=== PATIENT | female | born 1940 | race Caucasian/White ===

== ENCOUNTER → 2016-12-10 | Outpatient (CLI) | payer MEDICARE, OTHER ==
[~2016-12-10] MED LIST: ALPR0.5T10 PO; AMLO10TA2 PO; ASPI-515 PO; ATOR40TA78 PO; DULO30CA2 PO; OMEP-110 PO
== END | disposition home or self-care (01) ==
LOC: RAD 13:28
PROVIDERS: ATTEND Family Medicine
DX: S06.0X0S Concussion without loss of consciousness, sequela (principal); R42 Dizziness and giddiness; X58.XXXS Exposure to other specified factors, sequela
CPT/HCPCS: 70450

== ENCOUNTER 2017-03-04 13:05 | Inpatient (IN) | payer MEDICARE, OTHER ==
[~2017-03-04] VITALS: Ht 162.6 cm; Wt 96.2 kg
[2017-03-04] MEDS ORDERED: PLEASE ENTER HEIGHT AND WEIGHT MC SCH (13:30)
[2017-03-04 14:05] VITALS: BP 142/82
[2017-03-04 14:07] LABS: HEMOGLOBIN 11.6 g/dL (11.7-16.4); WHITE BLOOD COUNT 7.2 x10^3/uL (3.4-10)
[2017-03-04 14:16] LABS: ASPARTATE AMINO TRANSFERASE 21 U/L (15-37); BLOOD UREA NITROGEN 15 mg/dL (7-18)
[2017-03-04] MEDS: ATORVASTATIN 40 MG TABLET PO SCH (19:55)
[2017-03-04 20:00] VITALS: BP 114/73
[2017-03-05 01:42] VITALS: BP 154/69
[2017-03-05 07:34] VITALS: BP 147/64
[2017-03-05] MEDS ORDERED: FENTANYL PF 100 MCG/2ML ONE (09:40)
[2017-03-05] MEDS ORDERED: MIDAZOLAM 1 MG/ML, 5ML ONE (09:40)
[2017-03-05] MEDS ORDERED: CEFAZOLIN PMX 1GM/50ML 50 ML ONE (09:40)
[2017-03-05] MEDS ORDERED: CEFAZOLIN 1,000 MG ONE (09:40)
[2017-03-05] MEDS ORDERED: LIDOCAINE 2%, 20ML ONE (09:40)
[2017-03-05] MEDS ORDERED: ZOLPIDEM 5MG TABLET PO PRN (11:00)
[2017-03-05] MEDS ORDERED: CEFAZOLIN PMX 1GM/50ML 50 ML IVPB ONE (11:00)
[2017-03-05 13:18] VITALS: BP 128/70
[2017-03-05] MEDS: CEFAZOLIN PMX 1GM/50ML 50 ML IVPB SCH (15:59)
[2017-03-05 20:21] VITALS: BP 158/85
[2017-03-05] MEDS: SODIUM CHLORIDE FLUSH 10ML SYR IVF SCH (21:03)
[2017-03-05] MEDS: ACETAMINOPHEN 325 MG TABLET PO PRN (21:03)
[2017-03-05] MEDS: DIPHENHYDRAMINE 25 MG CAPSULE PO PRN (21:03)
[2017-03-05] MEDS: ATORVASTATIN 40 MG TABLET PO SCH (21:03)
[2017-03-06] MEDS: CEFAZOLIN PMX 1GM/50ML 50 ML IVPB SCH (00:50)
[2017-03-06] MEDS: DIPHENHYDRAMINE 25 MG CAPSULE PO PRN (00:50)
[2017-03-06 02:02] VITALS: BP 137/83
[2017-03-06] MEDS: ACETAMINOPHEN 325 MG TABLET PO PRN (06:29)
[2017-03-06 06:42] VITALS: BP 165/83
[2017-03-06] MEDS: SODIUM CHLORIDE FLUSH 10ML SYR IVF SCH (07:47)
[2017-03-06] MEDS ORDERED: FAMOTIDINE 20 MG TABLET PO ONE (09:00)
[2017-03-06] MEDS ORDERED: AMLODIPINE 5 MG TABLET PO SCH (09:00)
[2017-03-06] MEDS ORDERED: ASPIRIN 81 MG TABLET EC PO SCH (09:00)
[2017-03-06] MEDS ORDERED: HYDROCORTISONE CRM 1%, 30GM TP PRN (09:00)
[2017-03-06] MEDS ORDERED: methylPREDNISolone SOD SUCC 125 MG/2 ML IVPush ONE (10:00)
== END 2017-03-06 10:59 | disposition home or self-care (01) | DRG 242 ==
LOC: 5SO 13:05
PROVIDERS: ADMIT Internal Medicine Cardiovascular Disease; ATTEND Internal Medicine Cardiovascular Disease
PROC: 0JH606Z Insertion of Pacemaker, Dual Chamber into Chest Subcutaneous Tissue and Fascia, Open Approach (ICD-10-PCS; principal; 2017-03-04)
PROC: 02H63JZ Insertion of Pacemaker Lead into Right Atrium, Percutaneous Approach (ICD-10-PCS; 2017-03-04)
PROC: 02HK3JZ Insertion of Pacemaker Lead into Right Ventricle, Percutaneous Approach (ICD-10-PCS; 2017-03-04)
DX: R00.1 Bradycardia, unspecified (principal); E43 Unspecified severe protein-calorie malnutrition; E11.22 Type 2 diabetes mellitus with diabetic chronic kidney disease; N18.9 Chronic kidney disease, unspecified; I12.9 Hypertensive chronic kidney disease with stage 1 through stage 4 chronic kidney disease, or unspecified chronic kidney disease; L29.9 Pruritus, unspecified; Z91.048 Other nonmedicinal substance allergy status
CPT/HCPCS: 33208; 36005; 36415; 71010; 80053; 85025; 85610; 93306; 99156; 99157; C1779; C1786; C1892; J0690; J2250; J3010; J3490; J2930; J7512; Q0163; Q9967

== ENCOUNTER → 2018-08-30 | Outpatient (CLI) | payer MEDICARE, OTHER ==
[~2018-08-30] MED LIST changes: +ACET-1600 PO; +ALBU8.5H8 INH; -AMLO10TA2 PO; +AMLO10TA8 PO; +ASPI-496 PO; +CHOL200040 PO; +DEXL60CA2 PO; +DULO20CA45 PO; +FLUO20CA19 PO; +FLUT1DIS INH; +GABA-826 PO; +LIDO113G3 TP; +LIDOCAINE PATCH; +LOPE2CAP94 PO; +LOTE5GEL EACHEYE; +NITR12SP2 TL; +PREG75CA PO; +SIMVASTATIN PO; +XANAX PO
[2018-08-30 12:56] LABS: ALANINE AMINOTRANSFERASE 15 U/L (12-78); ALBUMIN 3.2 g/dL (3.4-5.0); ANION GAP 8 mmol/L (5-15); CALCIUM 8.8 mg/dL (8.5-10.1); CHLORIDE 106 mmol/L (98-107); CREATININE 1.19 mg/dL (0.55-1.02)
[2018-08-30 12:58] LABS: ALKALINE PHOSPHATASE 99 U/L (45-117); BILIRUBIN,TOTAL 0.5 mg/dL (0.2-1.0); TOTAL PROTEIN 7.3 g/dL (6.4-8.2)
[2018-08-30 13:10] LABS: BASOPHILS # (AUTO) 0.07 x10^3/uL (0-0.1); BASOPHILS % (AUTO) 1 % (0-1); EOSINOPHILS # (AUTO) 0.22 x10^3/uL (0-0.4); EOSINOPHILS % (AUTO) 3 % (1-7); LYMPHOCYTES # (AUTO) 1.73 x10^3/uL (1-3.4); LYMPHOCYTES % (AUTO) 26 % (22-44); MD NO; MEAN CORPUSCULAR HEMOGLOBIN 26.4 pg (27.0-34.8); MEAN CORPUSCULAR HGB CONC 32.2 g/dL (32.4-35.8); MEAN CORPUSCULAR VOLUME 82.1 fL (80-100); MEAN PLATELET VOLUME 9.4 fL (7.4-10.4); MONOCYTES # (AUTO) 0.55 x10^3/uL (0.2-0.8); MONOCYTES % (AUTO) 8 % (2-9); NEUTROPHILS # (AUTO) 4.18 x10^3/uL (1.8-6.8); NEUTROPHILS % (AUTO) 62 % (42-75); PLATELET COUNT 300 x10^3/uL (130-400); RED BLOOD COUNT 4.69 x10^6/uL (3.82-5.3); RED CELL DISTRIBUTION WIDTH 18.1 % (9.6-15.2)
== END | disposition home or self-care (01) ==
LOC: STAR 11:02
PROVIDERS: ATTEND Orthopaedic Surgery
DX: Z01.818 Encounter for other preprocedural examination (principal); T84.84XS Pain due to internal orthopedic prosthetic devices, implants and grafts, sequela; Z96.652 Presence of left artificial knee joint
CPT/HCPCS: 36415; 80053; 85025; 87081; 87147; 93005

== ENCOUNTER → 2018-12-13 | Outpatient (CLI) | payer MEDICARE, OTHER ==
[~2018-12-13] MED LIST changes: +OXYC5CAP2 PO
== END | disposition home or self-care (01) ==
LOC: CFH 14:09
PROVIDERS: ATTEND Internal Medicine Cardiovascular Disease
DX: R07.89 Other chest pain (principal); R06.02 Shortness of breath
CPT/HCPCS: 71046

== ENCOUNTER → 2018-12-27 | Outpatient (CLI) | payer MEDICARE, OTHER ==
[~2018-12-27] MED LIST changes: +ALPR0.5T6 PO; +FLUT12HF2 INH; +LIDO700A42 TD
[2018-12-27 15:29] LABS: BASOPHILS # (AUTO) 0.05 x10^3/uL (0-0.1); BASOPHILS % (AUTO) 1 % (0-1); EOSINOPHILS % (AUTO) 1 % (1-7); LYMPHOCYTES # (AUTO) 1.94 x10^3/uL (1-3.4); LYMPHOCYTES % (AUTO) 20 % (22-44); MD NO; MEAN CORPUSCULAR VOLUME 80.6 fL (80-100); MEAN PLATELET VOLUME 9.2 fL (7.4-10.4); MONOCYTES # (AUTO) 0.65 x10^3/uL (0.2-0.8); MONOCYTES % (AUTO) 7 % (2-9); NEUTROPHILS # (AUTO) 7.01 x10^3/uL (1.8-6.8); NEUTROPHILS % (AUTO) 72 % (42-75); PLATELET COUNT 310 x10^3/uL (130-400); RED BLOOD COUNT 4.65 x10^6/uL (3.82-5.3); RED CELL DISTRIBUTION WIDTH 17.4 % (9.6-15.2)
== END | disposition home or self-care (01) ==
LOC: STAR 10:33
PROVIDERS: ATTEND Orthopaedic Surgery
DX: Z01.810 Encounter for preprocedural cardiovascular examination (principal); M25.562 Pain in left knee; I10 Essential (primary) hypertension; Z96.652 Presence of left artificial knee joint
CPT/HCPCS: 36415; 85025; 93005

== ENCOUNTER → 2018-12-27 | Outpatient (CLI) | payer MEDICARE, OTHER ==
[~2018-12-27] MED LIST changes: +REGADENOSON 0.4 MG/5 ML SYRINGE ONE
== END | disposition home or self-care (01) ==
LOC: RAD 10:30
PROVIDERS: ATTEND Internal Medicine Cardiovascular Disease
DX: Z01.810 Encounter for preprocedural cardiovascular examination (principal); I10 Essential (primary) hypertension; I34.0 Nonrheumatic mitral (valve) insufficiency
CPT/HCPCS: 0399T; 78452; 93017; 93306; A9502; J2785

== ENCOUNTER 2019-01-05 09:39 | Inpatient (IN) | payer MEDICARE, OTHER ==
[2018-12-27 15:25] VITALS: BP 143/90
[~2019-01-05] VITALS: Ht 165.1 cm; Wt 103.0 kg
[~2019-01-05 09:39] MED LIST changes: +EPINEPHRINE 1 MG/ML, 1ML ONE; +KETOROLAC 60 MG/2 ML ONE; -REGADENOSON 0.4 MG/5 ML SYRINGE ONE; +ROPIvacaine/PF 0.5%, 20 ML ONE; +SODIUM CHLORIDE 0.9% 50 ML ONE; +TRANEXAMIC ACID 100 MG/ML, 10ML ONE
[2019-01-05] MEDS ORDERED: VANCOMYCIN PER PHARMACY MC STA (09:49)
[2019-01-05] MEDS ORDERED: VANCOMYCIN 1,700 MG in SODIUM CHLORIDE 0.9% 250 ML IV ONE (10:00)
[2019-01-05] MEDS ORDERED: LACTATED RINGERS 1,000 ML IV SCH (10:22)
[2019-01-05] MEDS ORDERED: OxyconTIN ER 10 MG TAB.ER PO ONE (10:30)
[2019-01-05] MEDS ORDERED: GABAPENTIN 300 MG CAPSULE PO ONE (10:30)
[2019-01-05] MEDS ORDERED: ACETAMINOPHEN 500 MG TABLET PO ONE (10:30)
[2019-01-05] MEDS ORDERED: DEXTROSE 50%, 50ML SYRINGE ONE (11:42)
[2019-01-05] MEDS ORDERED: DEXTROSE 50%, 50ML SYRINGE IVPush ONE (12:00)
[2019-01-05] MEDS ORDERED: MIDAZOLAM 1 MG/ML, 2ML ONE (12:57)
[2019-01-05] MEDS ORDERED: FENTANYL PF 250 MCG/5ML ONE (12:57)
[2019-01-05] MEDS ORDERED: KETAMINE 10 MG/ML, 20ML ONE (13:34)
[2019-01-05] MEDS ORDERED: PHENYLEPHRINE 10 MG/ML ONE (13:45)
[2019-01-05] MEDS ORDERED: ROPIvacaine/PF 0.2%, 100ML 550 ML (check volume) INJ ONE (14:30)
[2019-01-05] MEDS ORDERED: ACETAMINOPHEN 325 MG TABLET PO PRN (16:00)
[2019-01-05] MEDS ORDERED: FENTANYL PF 100 MCG/2ML IV PRN (16:00)
[2019-01-05] MEDS ORDERED: DIAZEPAM 5 MG/ML, 2ML IVPush PRN (16:00)
[2019-01-05] MEDS ORDERED: OXYcodone 5 MG/5 ML ORAL.SOL UDC PO PRN (16:00)
[2019-01-05] MEDS ORDERED: PROMETHAZINE 25 MG/ML, 1ML IV PRN (16:00)
[2019-01-05] MEDS ORDERED: hydrALAzine 20 MG/ML, 1ML IV PRN (16:00)
[2019-01-05] MEDS ORDERED: MIDAZOLAM 1 MG/ML, 2ML IV PRN (16:00)
[2019-01-05] MEDS ORDERED: ONDANSETRON 2MG/ML, 2ML IV PRN (16:00)
[2019-01-05] MEDS ORDERED: HYDROmorphone 2 MG/ML, 1ML IVPush PRN (16:00)
[2019-01-05] MEDS ORDERED: ALBUTEROL/IPRATROPIUM 2.5MG/0.5MG, 3 ML NPPB PRN (16:00)
[2019-01-05] MEDS ORDERED: MEPERIDINE/PF 25MG/0.5ML IVPush PRN (16:00)
[2019-01-05] MEDS ORDERED: ONDANSETRON 2MG/ML, 2ML ONE (16:08)
[2019-01-05] MEDS ORDERED: SUCCINYLCHOLINE 20 MG/ML, 10ML ONE (16:08)
[2019-01-05] MEDS ORDERED: DEXAMETHASONE 4 MG/ML, 1ML ONE (16:08)
[2019-01-05] MEDS ORDERED: ROCURONIUM 10MG/ML,5ML ONE (16:08)
[2019-01-05] MEDS ORDERED: CEFAZOLIN 1,000 MG ONE (16:08)
[2019-01-05] MEDS ORDERED: PROPOFOL 10 MG/ML, 20ML ONE (16:08)
[2019-01-05] MEDS ORDERED: ROPIvacaine/PF 0.2%, 20 ML ONE (16:08)
[2019-01-05] MEDS ORDERED: OXYcodone IR 5MG TABLET PO PRN (17:00)
[2019-01-05] MEDS ORDERED: HYDROmorphone 1 MG/ML, 1ML INJ IVPush PRN (17:00)
[2019-01-05] MEDS ORDERED: MAGNESIUM HYDROXIDE 8%, 30ML UDC PO PRN (17:00)
[2019-01-05] MEDS ORDERED: ONDANSETRON 4 MG TABLET PO PRN (17:00)
[2019-01-05] MEDS ORDERED: ACETAMINOPHEN 650 MG/20.3 ML UDC PO PRN (17:00)
[2019-01-05] MEDS ORDERED: POLYETHYLENE GLYCOL 17 GM PACKET PO PRN (17:00)
[2019-01-05] MEDS ORDERED: PROMETHAZINE 25 MG/ML, 1ML IM PRN (17:00)
[2019-01-05] MEDS ORDERED: DIAZEPAM 5 MG TABLET PO PRN (17:00)
[2019-01-05] MEDS ORDERED: METOCLOPRAMIDE 10MG TABLET PO PRN (17:00)
[2019-01-05] MEDS ORDERED: PROMETHAZINE 12.5 MG SUPP PR PRN (17:00)
[2019-01-05] MEDS ORDERED: METOCLOPRAMIDE 5 MG/ML, 2ML IVPush PRN (17:00)
[2019-01-05] MEDS ORDERED: TEMPLATE NON-FORMULARY MED. (Albuterol Sulfate (Proair Hfa) 2 PUFF(S)) INH PRN (17:00)
[2019-01-05] MEDS ORDERED: ALUMINUM/MAG/SIMETHICONE 30 ML UDC PO PRN (17:00)
[2019-01-05] MEDS ORDERED: DIPHENHYDRAMINE 50 MG/ML, 1ML IVPush PRN (17:00)
[2019-01-05] MEDS ORDERED: ZOLPIDEM 5MG TABLET PO PRN (17:00)
[2019-01-05] MEDS ORDERED: BISACODYL 10 MG SUPP PR PRN (17:00)
[2019-01-05] MEDS ORDERED: PSYLLIUM PACKET PO PRN (17:00)
[2019-01-05] MEDS ORDERED: LORazepam 1MG TABLET PO PRN (17:00)
[2019-01-05] MEDS ORDERED: SENNA/DOCUSATE TABLET PO PRN (17:00)
[2019-01-05] MEDS: ACETAMINOPHEN 500 MG TABLET PO SCH ×2 (17:00→23:25)
[2019-01-05] MEDS ORDERED: ONDANSETRON 2MG/ML, 2ML IVPush PRN (17:00)
[2019-01-05] MEDS ORDERED: FENTANYL PF 100 MCG/2ML ONE (17:21)
[2019-01-05] MEDS ORDERED: OXYcodone 5 MG/5 ML ORAL.SOL UDC ONE (17:22)
[2019-01-05] MEDS ORDERED: TRANEXAMIC ACID 1,000 MG in SODIUM CHLORIDE 0.9% 100 ML IVPB ONE (18:00)
[2019-01-05] MEDS: CALCIUM/VITAMIN D3 250-125 TABLET PO SCH (18:00)
[2019-01-05] MEDS: FERROUS SULFATE 325 MG TABLET PO SCH (18:00)
[2019-01-05] MEDS ORDERED: DEXAMETHASONE 4 MG/ML, 1ML IVPush ONE (18:00)
[2019-01-05 18:24] VITALS: BP 109/66
[2019-01-05 20:49] VITALS: BP 90/52
[2019-01-05] MEDS: LOTEPREDNOL ETABONATE EACHEYE SCH (21:00)
[2019-01-05] MEDS: OMEPRAZOLE 20 MG CAPSULE.DR PO SCH (21:26)
[2019-01-05] MEDS: GABAPENTIN 100 MG CAPSULE PO SCH (21:26)
[2019-01-05] MEDS: DOCUSATE 100 MG CAPSULE PO SCH (21:26)
[2019-01-05] MEDS: ATORVASTATIN 40 MG TABLET PO SCH (21:26)
[2019-01-05] MEDS: CEFAZOLIN PMX 1GM/50ML 50 ML IVPB SCH (23:25)
[2019-01-06] VITALS (14 sets, daily range): BP systolic 82–135; BP diastolic 43–78
--- NOTE | 2019-01-06 00:50 | NUR ---
VAMSI MANLEY - Fall Risk Medication(s) present and receiving anticoagulants.
[2019-01-06] MEDS ORDERED: VANCOMYCIN PMX 1GM/200ML 200 ML IVPB ONE (01:00)
[2019-01-06] MEDS: LACTATED RINGERS 1,000 ML IV SCH ×3 (04:33→20:19)
[2019-01-06] MEDS: ACETAMINOPHEN 500 MG TABLET PO SCH ×4 (05:51→22:09)
[2019-01-06] MEDS: OMEPRAZOLE 20 MG CAPSULE.DR PO SCH ×3 (05:52→20:18)
[2019-01-06] MEDS ORDERED: DEXAMETHASONE 4 MG/ML, 1ML IVPush ONE (06:00)
[2019-01-06] MEDS: GABAPENTIN 100 MG CAPSULE PO SCH ×3 (08:43→20:18)
[2019-01-06] MEDS: MULTIVITAMINS/MINERALS TABLET PO SCH (08:43)
[2019-01-06] MEDS: FERROUS SULFATE 325 MG TABLET PO SCH ×2 (08:44→16:59)
[2019-01-06] MEDS: CALCIUM/VITAMIN D3 250-125 TABLET PO SCH ×3 (08:44→16:59)
[2019-01-06] MEDS: RIVAROXABAN 10 MG TABLET PO SCH (08:44)
[2019-01-06] MEDS: DOCUSATE 100 MG CAPSULE PO SCH ×2 (08:44→20:18)
[2019-01-06] MEDS: ADVAIR INH SCH (08:44)
[2019-01-06] MEDS: ASCORBIC ACID 500 MG TABLET PO SCH (08:44)
[2019-01-06] MEDS: LOTEPREDNOL ETABONATE EACHEYE SCH ×2 (08:44→20:20)
[2019-01-06] MEDS: FLUOXETINE HCL 20 MG CAPSULE PO SCH (08:44)
[2019-01-06] MEDS: LIDODERM 5% PATCH TD SCH (08:45)
[2019-01-06] MEDS: CEFAZOLIN PMX 1GM/50ML 50 ML IVPB SCH (10:11)
[2019-01-06] MEDS: ATORVASTATIN 40 MG TABLET PO SCH (20:18)
[2019-01-07 00:34] VITALS: BP 92/63
[2019-01-07] MEDS: ACETAMINOPHEN 500 MG TABLET PO SCH ×3 (04:11→17:27)
[2019-01-07] MEDS: OXYcodone IR 5MG TABLET PO PRN ×4 (05:21→16:07)
[2019-01-07 07:20] VITALS: BP 154/82
[2019-01-07] MEDS: FLUOXETINE HCL 20 MG CAPSULE PO SCH (07:56)
[2019-01-07] MEDS: CALCIUM/VITAMIN D3 250-125 TABLET PO SCH ×3 (07:57→17:27)
[2019-01-07] MEDS: GABAPENTIN 100 MG CAPSULE PO SCH ×3 (07:57→22:11)
[2019-01-07] MEDS: RIVAROXABAN 10 MG TABLET PO SCH (07:57)
[2019-01-07] MEDS: DOCUSATE 100 MG CAPSULE PO SCH ×2 (07:57→22:11)
[2019-01-07] MEDS: FERROUS SULFATE 325 MG TABLET PO SCH ×2 (07:57→17:27)
[2019-01-07] MEDS: ASCORBIC ACID 500 MG TABLET PO SCH (07:57)
[2019-01-07] MEDS: MULTIVITAMINS/MINERALS TABLET PO SCH (07:57)
[2019-01-07] MEDS: LIDODERM 5% PATCH TD SCH (07:58)
[2019-01-07] MEDS: ADVAIR INH SCH (07:58)
[2019-01-07] MEDS: LOTEPREDNOL ETABONATE EACHEYE SCH ×2 (07:58→21:00)
[2019-01-07] MEDS: LACTATED RINGERS 1,000 ML IV SCH ×2 (08:00→20:00)
[2019-01-07 16:47] VITALS: BP 125/76
[2019-01-07] MEDS: OMEPRAZOLE 20 MG CAPSULE.DR PO SCH (17:27)
[2019-01-07 20:48] VITALS: BP 106/72
[2019-01-07] MEDS: ATORVASTATIN 40 MG TABLET PO SCH (22:11)
[2019-01-08] MEDS: ACETAMINOPHEN 500 MG TABLET PO SCH ×4 (00:17→15:35)
[2019-01-08] MEDS: DIPHENHYDRAMINE 25 MG CAPSULE PO PRN ×2 (00:17→06:16)
[2019-01-08 01:00] VITALS: BP 112/70
[2019-01-08] MEDS: LACTATED RINGERS 1,000 ML IV SCH ×2 (06:00→15:34)
[2019-01-08] MEDS: OMEPRAZOLE 20 MG CAPSULE.DR PO SCH ×2 (06:23→15:35)
[2019-01-08 09:14] VITALS: BP 138/79
[2019-01-08] MEDS: FLUOXETINE HCL 20 MG CAPSULE PO SCH (09:20)
[2019-01-08] MEDS: CALCIUM/VITAMIN D3 250-125 TABLET PO SCH ×3 (09:20→15:34)
[2019-01-08] MEDS: MULTIVITAMINS/MINERALS TABLET PO SCH (09:20)
[2019-01-08] MEDS: ASCORBIC ACID 500 MG TABLET PO SCH (09:20)
[2019-01-08] MEDS: GABAPENTIN 100 MG CAPSULE PO SCH ×2 (09:21→15:34)
[2019-01-08] MEDS: FERROUS SULFATE 325 MG TABLET PO SCH (09:21)
[2019-01-08] MEDS: RIVAROXABAN 10 MG TABLET PO SCH (09:21)
[2019-01-08] MEDS: DOCUSATE 100 MG CAPSULE PO SCH (09:21)
[2019-01-08] MEDS: LIDODERM 5% PATCH TD SCH (09:23)
[2019-01-08] MEDS: ADVAIR INH SCH (09:23)
[2019-01-08] MEDS: LOTEPREDNOL ETABONATE EACHEYE SCH (09:23)
[2019-01-08 13:47] VITALS: BP 128/78
== END 2019-01-08 16:02 | DRG 467 ==
LOC: ORIP 09:39 → 4NOR 17:11
PROVIDERS: ADMIT Orthopaedic Surgery; ATTEND Orthopaedic Surgery
PROC: 0SRD0J9 Replacement of Left Knee Joint with Synthetic Substitute, Cemented, Open Approach (ICD-10-PCS; 2019-01-05)
PROC: 0SPD0JZ Removal of Synthetic Substitute from Left Knee Joint, Open Approach (ICD-10-PCS; principal; 2019-01-05 12:45)
DX: M25.362 Other instability, left knee (principal); R71.0 Precipitous drop in hematocrit; E78.00 Pure hypercholesterolemia, unspecified; G89.29 Other chronic pain; I10 Essential (primary) hypertension; I25.10 Atherosclerotic heart disease of native coronary artery without angina pectoris; J44.9 Chronic obstructive pulmonary disease, unspecified; F32.9 Major depressive disorder, single episode, unspecified; K21.9 Gastro-esophageal reflux disease without esophagitis; Z96.652 Presence of left artificial knee joint; Z86.73 Personal history of transient ischemic attack (TIA), and cerebral infarction without residual deficits; Z79.899 Other long term (current) drug therapy
CPT/HCPCS: 36415; 82962; 85014; 85018; C1713; G0378; J0171; J0690; J1100; J1885; J2250; J2405; J2704; J2795; J3010; J3370; Q0162; C1762; C1776; J0330; J1200; J2370; J7050; J7120; Q0163

== ENCOUNTER 2019-01-18 11:57 | Observation (INO) | payer MEDICARE, OTHER ==
[~2019-01-18] VITALS: Ht 167.6 cm; Wt 82.0 kg
[~2019-01-18 11:57] MED LIST changes: -EPINEPHRINE 1 MG/ML, 1ML ONE; -KETOROLAC 60 MG/2 ML ONE; -ROPIvacaine/PF 0.5%, 20 ML ONE; -SODIUM CHLORIDE 0.9% 50 ML ONE; -TRANEXAMIC ACID 100 MG/ML, 10ML ONE
--- NOTE | 2019-01-18 12:10 | NUR ---
JOSE. REPORT FROM EMS. PT HAS BEEN HALLUCINATING AND CONFUSED X 1 WEEK. DENIES PAIN AND OTHER SX. NO HX OF DEMENTIA. PT AOX4 HERE. RESPS EVEN AND UNLABORED. EDMD AT BEDSIDE TO EVALUATE. NEURO INTACT.
[2019-01-18 12:58] LABS: ANION GAP 8 mmol/L (5-15); CALCIUM 8.6 mg/dL (8.5-10.1); CHLORIDE 108 mmol/L (98-107); CREATININE 1.02 mg/dL (0.55-1.02)
[2019-01-18 13:06] LABS: BASOPHILS # (AUTO) 0.03 x10^3/uL (0-0.1); BASOPHILS % (AUTO) 0 % (0-1); EOSINOPHILS # (AUTO) 0.53 x10^3/uL (0-0.4); EOSINOPHILS % (AUTO) 6 % (1-7); LYMPHOCYTES # (AUTO) 1.69 x10^3/uL (1-3.4); LYMPHOCYTES % (AUTO) 19 % (22-44); MD SCAN; MEAN CORPUSCULAR HEMOGLOBIN 24.5 pg (27.0-34.8); MEAN CORPUSCULAR HGB CONC 30.4 g/dL (32.4-35.8); MEAN CORPUSCULAR VOLUME 80.7 fL (80-100); MEAN PLATELET VOLUME 8.8 fL (7.4-10.4); MONOCYTES # (AUTO) 0.66 x10^3/uL (0.2-0.8); MONOCYTES % (AUTO) 7 % (2-9); NEUTROPHILS # (AUTO) 6.21 x10^3/uL (1.8-6.8); NEUTROPHILS % (AUTO) 68 % (42-75); PLATELET COUNT 423 x10^3/uL (130-400); RED BLOOD COUNT 3.99 x10^6/uL (3.82-5.3); RED CELL DISTRIBUTION WIDTH 19.6 % (9.6-15.2)
[2019-01-18] MEDS ORDERED: LORazepam 1MG TABLET ONE (13:16)
--- NOTE | 2019-01-18 13:19 | NUR ---
PT REFUSED EVERYTHING(UA/BP/CT). EDMD NOTIFIED. EDMD ORDERED ATIVAN PO. PT MEDICATED PER EMAR. PT TOLERATED WELL.
--- NOTE | 2019-01-18 13:20 | NUR ---
pt provided some water. pt had water without cough/choking. pt passed dysphagia screening at this time.
[2019-01-18] MEDS ORDERED: LORazepam 1MG TABLET PO ONE (13:30)
--- NOTE | 2019-01-18 14:14 | NUR ---
pt to ct now.
--- NOTE | 2019-01-18 14:38 | NUR ---
pt refused streight cath x 2 times.
--- NOTE | 2019-01-18 14:55 | NUR ---
pt brenda cath'd using sterile technique. marciano barahona walked to lab now.
--- NOTE | 2019-01-18 15:00 | NUR ---
report given to marciano barahona.
[2019-01-18 15:07] LABS: MICROSCOPIC NOT IND
[2019-01-18 15:14] LABS: CULTURE INDICATED? NO
--- NOTE | 2019-01-18 15:48 | NUR ---
Pt repeativiely talking about her doctor and states "he will just see me at home, take me home" per family pt is extremely altered from baseline, chart up for recheck.
--- NOTE | 2019-01-18 15:57 | NUR ---
Family reports pt increasingly agitated, attempting to find MD to notify, chart remains up for recheck.
--- NOTE | 2019-01-18 16:17 | NUR ---
MD aware of pts increasing agitation, will recheck pt and discuss plan of care with family
--- NOTE | 2019-01-18 16:34 | NUR ---
Pt refusing repeat BP, pt yelling at RN, increasingly agitated when RN attempts to redirect and take blood pressure.
--- NOTE | 2019-01-18 16:38 | NUR ---
Pt given water with MD luna
--- NOTE | 2019-01-18 17:15 | NUR ---
Report to Karley AMBROSE, will start IV and draw labs, then pt is ready for transport. Pt is alert and oriented x4 upon hospitalist assesment, pt denies any confusion, hallucination.
--- NOTE | 2019-01-18 17:25 | NUR ---
Pt angry with RN starting IV, DR yen at bedside, pt agrees to IV start by someone else, vehicle glass technician at bedside for IV start then transport.
[2019-01-18 17:26] LABS: AMPHETAMINE SCREEN, URINE Negative (Negative); BARBITURATE SCREEN, URINE Negative (Negative); BENZODIAZEPINE SCREEN, URINE Negative (Negative); CANNABINOID SCREEN, URINE Negative (Negative); COCAINE SCREEN, URINE Negative (Negative); METHADONE SCREEN, URINE Negative (Negative); OPIATE SCREEN, URINE Negative (Negative)
--- NOTE | 2019-01-18 17:59 | NUR ---
piv placed in pt without issue. tolerated well.
--- NOTE | 2019-01-18 18:02 | NUR ---
US IV started by Gurpreet Lopez RN, pt en transport to floor
[2019-01-18 19:41] LABS: BILIRUBIN, DIRECT 0.2 mg/dL (0.1-0.2)
[2019-01-18 19:43] LABS: BILIRUBIN,INDIRECT 0.3 mg/dL (0.0-2.0); BILIRUBIN,TOTAL 0.5 mg/dL (0.2-1.0); TOTAL PROTEIN 6.8 g/dL (6.4-8.2)
[2019-01-18 19:55] VITALS: BP 124/76
[2019-01-18] MEDS ORDERED: DOCUSATE 100 MG CAPSULE PO PRN (20:30)
[2019-01-18] MEDS ORDERED: ALBUTEROL SULFATE 2.5 MG/3 ML NEB PRN (20:30)
[2019-01-18] MEDS ORDERED: hydrALAzine 20 MG/ML, 1ML IVPush PRN (20:30)
[2019-01-18] MEDS ORDERED: ONDANSETRON ODT 4 MG PO PRN (20:30)
[2019-01-18] MEDS: LOTEPREDNOL ETABONATE EACHEYE SCH (21:00)
[2019-01-18] MEDS: OMEPRAZOLE 20 MG CAPSULE.DR PO SCH (21:00)
[2019-01-18] MEDS: ALBUTEROL SULFATE 2.5 MG/3 ML NPPB SCH (21:00)
[2019-01-18] MEDS: BUDESONIDE 0.5 MG/2 ML INHA NPPB SCH (21:00)
[2019-01-18] MEDS: ATORVASTATIN 40 MG TABLET PO SCH (21:00)
[2019-01-19] MEDS: ACETAMINOPHEN 500 MG TABLET PO PRN (01:16)
[2019-01-19 01:30] VITALS: BP 149/70
[2019-01-19] MEDS: OMEPRAZOLE 20 MG CAPSULE.DR PO SCH ×2 (05:14→15:53)
[2019-01-19] MEDS: ALBUTEROL SULFATE 2.5 MG/3 ML NPPB SCH ×3 (07:20→21:00)
[2019-01-19] MEDS: BUDESONIDE 0.5 MG/2 ML INHA NPPB SCH ×2 (07:20→21:00)
[2019-01-19 07:41] VITALS: BP 188/77
[2019-01-19] MEDS: FLUOXETINE HCL 20 MG CAPSULE PO SCH (07:48)
[2019-01-19] MEDS ORDERED: ZIPRASIDONE 20 MG INJ IM ONE ×2 (08:20→08:30)
[2019-01-19] MEDS: LIDODERM 5% PATCH TD SCH (09:00)
[2019-01-19] MEDS: ASPIRIN 81 MG TABLET EC PO SCH (09:00)
[2019-01-19] MEDS: LOTEPREDNOL ETABONATE EACHEYE SCH ×2 (09:00→21:00)
[2019-01-19 13:11] VITALS: BP 139/81
[2019-01-19 19:24] VITALS: BP 126/68
[2019-01-19] MEDS: ATORVASTATIN 40 MG TABLET PO SCH (21:19)
[2019-01-20] MEDS: ACETAMINOPHEN 500 MG TABLET PO PRN (02:14)
[2019-01-20] MEDS: ALBUTEROL SULFATE 2.5 MG/3 ML NPPB SCH ×3 (02:25→15:00)
[2019-01-20 03:25] VITALS: BP 120/62
[2019-01-20 06:22] VITALS: BP 127/67
[2019-01-20] MEDS: OMEPRAZOLE 20 MG CAPSULE.DR PO SCH ×2 (06:37→16:45)
[2019-01-20] MEDS: BUDESONIDE 0.5 MG/2 ML INHA NPPB SCH (09:00)
[2019-01-20] MEDS: LIDODERM 5% PATCH TD SCH (10:20)
[2019-01-20] MEDS: ASPIRIN 81 MG TABLET EC PO SCH (10:20)
[2019-01-20] MEDS: LOTEPREDNOL ETABONATE EACHEYE SCH (10:20)
[2019-01-20] MEDS: FLUOXETINE HCL 20 MG CAPSULE PO SCH (10:20)
[2019-01-20 12:59] VITALS: BP 122/63
[2019-01-20] MEDS ORDERED: DOCU-131 PO (14:52)
== END 2019-01-20 17:26 | disposition home or self-care (01) ==
LOC: ED 16:22 → INTOOBSV 16:32 → EDIP 16:32 → ED 16:52 → 3NW 16:52
PROVIDERS: ADMIT Internal Medicine; ATTEND Internal Medicine
DX: R45.1 Restlessness and agitation (principal); G93.49 Other encephalopathy; E66.9 Obesity, unspecified; E78.00 Pure hypercholesterolemia, unspecified; F32.9 Major depressive disorder, single episode, unspecified; F41.9 Anxiety disorder, unspecified; I25.10 Atherosclerotic heart disease of native coronary artery without angina pectoris; K21.9 Gastro-esophageal reflux disease without esophagitis; I10 Essential (primary) hypertension; J44.9 Chronic obstructive pulmonary disease, unspecified; G89.4 Chronic pain syndrome; G47.33 Obstructive sleep apnea (adult) (pediatric); Z87.891 Personal history of nicotine dependence; Z96.652 Presence of left artificial knee joint; Z86.73 Personal history of transient ischemic attack (TIA), and cerebral infarction without residual deficits; Z95.0 Presence of cardiac pacemaker; Z79.82 Long term (current) use of aspirin; Z79.899 Other long term (current) drug therapy; Z88.6 Allergy status to analgesic agent; Z88.5 Allergy status to narcotic agent; Z91.048 Other nonmedicinal substance allergy status; Z91.018 Allergy to other foods
CPT/HCPCS: 36415; 70450; 80048; 80076; 80307; 81003; 82140; 84443; 85025; 94640; 96372; 97163; 97165; 99284; G0378; J3486; J7613; J7626

== ENCOUNTER 2019-02-07 03:56 | Inpatient (IN) | payer MEDICARE, OTHER ==
[2019-02-07] VITALS (8 sets, daily range): BP systolic 102–142; BP diastolic 58–99
[~2019-02-07] VITALS: Ht 167.6 cm; Wt 87.3 kg
[~2019-02-07 03:56] MED LIST changes: +DOCU-131 PO
[2019-02-07] MEDS ORDERED: MORPHINE SULFATE 4 MG/ML, 1ML ONE ×2 (04:11→05:05)
--- NOTE | 2019-02-07 04:28 | NUR ---
PT WOKE UP AND WAS GETTING DRESSED WHEN SHE HAD A GROUND LEVEL FALL CAUSING PAIN TO LEFT HIP
[2019-02-07] MEDS ORDERED: SODIUM CHLORIDE FLUSH 10ML SYR IVF ONE (04:30)
[2019-02-07] MEDS ORDERED: ONDANSETRON 2MG/ML, 2ML IVPush ONE (04:30)
[2019-02-07] MEDS ORDERED: MORPHINE SULFATE 4 MG/ML, 1ML IVPush PRN (04:30)
[2019-02-07] MEDS ORDERED: DIPHENHYDRAMINE 50 MG/ML, 1ML ONE ×2 (04:53→05:57)
[2019-02-07] MEDS ORDERED: DIPHENHYDRAMINE 50 MG/ML, 1ML IVPush ONE (05:00)
[2019-02-07 05:19] LABS: INTERNATIONAL NORMALIZED RATIO 1.08 (0.93-1.1); PROTHROMBIN TIME 11.3 Seconds (9.6-11.5)
[2019-02-07] MEDS ORDERED: HYDROmorphone 2 MG/ML, 1ML ONE (05:21)
--- NOTE | 2019-02-07 05:28 | NUR ---
PT CONTINUES TO SCREAM HELP DESPITE PAIN MEDS, DAUGHTER AT BEDSIDE
[2019-02-07] MEDS ORDERED: HYDROmorphone 1 MG/ML, 1ML INJ IV ONE (05:30)
[2019-02-07 05:57] LABS: BASOPHILS # (AUTO) 0.05 x10^3/uL (0-0.1); BASOPHILS % (AUTO) 1 % (0-1); EOSINOPHILS % (AUTO) 4 % (1-7); LYMPHOCYTES # (AUTO) 1.67 x10^3/uL (1-3.4); LYMPHOCYTES % (AUTO) 17 % (22-44); MD NO; MEAN CORPUSCULAR HGB CONC 31.3 g/dL (32.4-35.8); MONOCYTES # (AUTO) 0.95 x10^3/uL (0.2-0.8); MONOCYTES % (AUTO) 10 % (2-9); NEUTROPHILS # (AUTO) 6.84 x10^3/uL (1.8-6.8); NEUTROPHILS % (AUTO) 69 % (42-75); PLATELET COUNT 339 x10^3/uL (130-400); RED BLOOD COUNT 4.29 x10^6/uL (3.82-5.3); RED CELL DISTRIBUTION WIDTH 18.8 % (9.6-15.2)
[2019-02-07 06:00] LABS: ALBUMIN 3.3 g/dL (3.4-5.0); ANION GAP 11 mmol/L (5-15); CALCIUM 8.7 mg/dL (8.5-10.1); CHLORIDE 106 mmol/L (98-107)
[2019-02-07] MEDS ORDERED: HYDROmorphone 2 MG/ML, 1ML IV ONE (06:00)
[2019-02-07 06:03] LABS: ALANINE AMINOTRANSFERASE 16 U/L (12-78); ALKALINE PHOSPHATASE 107 U/L (45-117); BILIRUBIN,TOTAL 0.7 mg/dL (0.2-1.0); CREATININE 0.95 mg/dL (0.55-1.02); TOTAL PROTEIN 7.2 g/dL (6.4-8.2)
[2019-02-07] MEDS ORDERED: ZIPRASIDONE 20 MG INJ IM ONE ×2 (06:54→07:00)
[2019-02-07 06:59] LABS: TROPONIN I < 0.015 ng/mL (0.000-0.045)
--- NOTE | 2019-02-07 07:30 | NUR ---
SITTER AT BEDSIDE USING COOL CLOTH TO COMFORT PT FOR AGITATION. PT CALMED BY COMFORT MEASURES AND WE WERE ABLE TO REMOVE SOFT RESTRAINTS FROM WRISTS.
--- NOTE | 2019-02-07 07:52 | NUR ---
PT MEDICATED FOR AGGITATION. PT SLEEPINGING ON GURNEY. SITTER AT BEDSIDE
--- NOTE | 2019-02-07 08:00 | NUR ---
ABG ORDERED, BUT UNALBE TO OBTAIN SPECIMEN DUE TO AGITATION. PT SLEEPING AND DISCUSSED W/ DR LEDEZMA, NOT TO DRAW ABG TO PREVENT PT FROM BECOMING AGITATED AGAIN. PT PLACED ON END TITLE CO2 MONITOR CURRENTLY READING 38.
--- NOTE | 2019-02-07 08:09 | NUR ---
REPORT GIVEN TO ARNOL ORTIZ
[2019-02-07] MEDS ORDERED: DOCUSATE 100 MG CAPSULE PO PRN ×2 (13:30→18:00)
[2019-02-07] MEDS ORDERED: LIDODERM 5% PATCH TD PRN (13:30)
[2019-02-07] MEDS ORDERED: ACETAMINOPHEN 500 MG TABLET PO PRN (13:30)
[2019-02-07] MEDS ORDERED: TEMPLATE NON-FORMULARY MED. (Albuterol Sulfate (Proair Hfa) 2 PUFF(S)) INH PRN (13:30)
[2019-02-07] MEDS ORDERED: ALBUTEROL SULFATE 2.5 MG/3 ML NPPB PRN (14:00)
[2019-02-07] MEDS: ALBUTEROL SULFATE 2.5 MG/3 ML NPPB SCH ×2 (14:34→21:08)
[2019-02-07 16:47] LABS: MICROSCOPIC AUTO
[2019-02-07 16:48] LABS: CULTURE INDICATED? YES
[2019-02-07] MEDS ORDERED: TRAZODONE 50MG TABLET PO PRN (18:00)
[2019-02-07] MEDS ORDERED: hydrALAzine 20 MG/ML, 1ML IVPush PRN (18:00)
[2019-02-07] MEDS ORDERED: LABETALOL 5MG/ML, 20ML IVPush PRN (18:00)
[2019-02-07] MEDS ORDERED: ONDANSETRON ODT 4 MG PO PRN (18:00)
[2019-02-07] MEDS ORDERED: ACETAMINOPHEN 325 MG TABLET PO PRN (18:00)
[2019-02-07] MEDS ORDERED: ONDANSETRON 2MG/ML, 2ML IVPush PRN (18:00)
[2019-02-07] MEDS: OMEPRAZOLE 20 MG CAPSULE.DR PO SCH (18:31)
[2019-02-07] MEDS: ENOXAPARIN 40 MG/0.4 ML SQ SCH (18:31)
[2019-02-07 18:46] LABS: FREE T4 (FREE THYROXINE) 1.15 ng/dL (0.76-1.46); TROPONIN I < 0.015 ng/mL (0.000-0.045)
[2019-02-07 18:56] LABS: HEMOGLOBIN A1C 5.6 % (4.2-6.3)
[2019-02-07] MEDS: LOTEPREDNOL ETABONATE EACHEYE SCH (20:34)
[2019-02-07] MEDS: ATORVASTATIN 40 MG TABLET PO SCH (20:35)
[2019-02-07] MEDS: FAMOTIDINE 20 MG TABLET PO SCH (20:35)
[2019-02-07] MEDS: BUDESONIDE 0.5 MG/2 ML INHA NPPB SCH (21:09)
[2019-02-08 00:03] LABS: TROPONIN I < 0.015 ng/mL (0.000-0.045)
[2019-02-08 01:48] VITALS: BP 124/72
[2019-02-08] MEDS: ALBUTEROL SULFATE 2.5 MG/3 ML NPPB SCH ×4 (03:06→20:00)
[2019-02-08 05:27] LABS: BASOPHILS # (AUTO) 0.05 x10^3/uL (0-0.1); BASOPHILS % (AUTO) 1 % (0-1); EOSINOPHILS # (AUTO) 0.27 x10^3/uL (0-0.4); EOSINOPHILS % (AUTO) 4 % (1-7); LYMPHOCYTES # (AUTO) 1.96 x10^3/uL (1-3.4); LYMPHOCYTES % (AUTO) 27 % (22-44); MD NO; MEAN CORPUSCULAR HEMOGLOBIN 24.8 pg (27.0-34.8); MEAN CORPUSCULAR HGB CONC 31.1 g/dL (32.4-35.8); MEAN CORPUSCULAR VOLUME 79.6 fL (80-100); MEAN PLATELET VOLUME 8.9 fL (7.4-10.4); MONOCYTES # (AUTO) 0.97 x10^3/uL (0.2-0.8); MONOCYTES % (AUTO) 13 % (2-9); NEUTROPHILS # (AUTO) 3.96 x10^3/uL (1.8-6.8); NEUTROPHILS % (AUTO) 55 % (42-75); PLATELET COUNT 281 x10^3/uL (130-400); RED BLOOD COUNT 3.82 x10^6/uL (3.82-5.3); RED CELL DISTRIBUTION WIDTH 19.5 % (9.6-15.2)
[2019-02-08 05:33] LABS: CHLORIDE 107 mmol/L (98-107)
[2019-02-08 05:39] LABS: ANION GAP 9 mmol/L (5-15); CALCIUM 8.4 mg/dL (8.5-10.1); CHOL/HDL RATIO 3.1; CHOLESTEROL, TOTAL 156 mg/dL (140-239); CREATININE 1.13 mg/dL (0.55-1.02); HDL CHOL % 33 % (28-40); HDL CHOLESTEROL (DIRECT) 51 mg/dL (40-60); LDL CHOLESTEROL,CALCULATED 77 mg/dL (54-169); LDL/HDL RATIO 1.5 (0.5-3.0); TRIGLYCERIDES 138 mg/dL (50-200); VLDL CHOLESTEROL 28 mg/dL (0-25)
[2019-02-08 07:57] VITALS: BP 134/75
[2019-02-08] MEDS: FAMOTIDINE 20 MG TABLET PO SCH ×2 (08:34→20:33)
[2019-02-08] MEDS: FLUOXETINE HCL 20 MG CAPSULE PO SCH (08:34)
[2019-02-08] MEDS: OMEPRAZOLE 20 MG CAPSULE.DR PO SCH ×2 (08:34→17:20)
[2019-02-08] MEDS: ASPIRIN 81 MG TABLET EC PO SCH (08:34)
[2019-02-08] MEDS: LOTEPREDNOL ETABONATE EACHEYE SCH ×2 (08:39→20:33)
[2019-02-08] MEDS: BUDESONIDE 0.5 MG/2 ML INHA NPPB SCH ×2 (14:50→20:00)
[2019-02-08 15:07] VITALS: BP 130/82
[2019-02-08] MEDS: SODIUM CHLORIDE 0.9% 1,000 ML IV SCH (17:20)
[2019-02-08] MEDS: ENOXAPARIN 40 MG/0.4 ML SQ SCH (17:20)
[2019-02-08 19:09] VITALS: BP 145/75
[2019-02-08] MEDS: ATORVASTATIN 40 MG TABLET PO SCH (20:33)
[2019-02-09 00:56] VITALS: BP 148/68
[2019-02-09] MEDS: ALBUTEROL SULFATE 2.5 MG/3 ML NPPB SCH ×3 (01:55→14:00)
[2019-02-09 04:56] LABS: BASOPHILS # (AUTO) 0.06 x10^3/uL (0-0.1); BASOPHILS % (AUTO) 1 % (0-1); EOSINOPHILS # (AUTO) 0.38 x10^3/uL (0-0.4); EOSINOPHILS % (AUTO) 5 % (1-7); LYMPHOCYTES # (AUTO) 1.65 x10^3/uL (1-3.4); LYMPHOCYTES % (AUTO) 22 % (22-44); MD NO; MEAN CORPUSCULAR HEMOGLOBIN 25.3 pg (27.0-34.8); MEAN CORPUSCULAR HGB CONC 31.6 g/dL (32.4-35.8); MEAN PLATELET VOLUME 9.2 fL (7.4-10.4); MONOCYTES % (AUTO) 12 % (2-9); NEUTROPHILS % (AUTO) 60 % (42-75); PLATELET COUNT 274 x10^3/uL (130-400); RED BLOOD COUNT 3.63 x10^6/uL (3.82-5.3); RED CELL DISTRIBUTION WIDTH 19.1 % (9.6-15.2)
[2019-02-09 05:01] LABS: ANION GAP 5 mmol/L (5-15); CALCIUM 8.3 mg/dL (8.5-10.1); CHLORIDE 108 mmol/L (98-107); CREATININE 0.98 mg/dL (0.55-1.02)
[2019-02-09] MEDS: SODIUM CHLORIDE 0.9% 1,000 ML IV SCH ×2 (05:57→15:00)
[2019-02-09 07:10] VITALS: BP 130/68
[2019-02-09] MEDS: BUDESONIDE 0.5 MG/2 ML INHA NPPB SCH (09:00)
[2019-02-09] MEDS: LOTEPREDNOL ETABONATE EACHEYE SCH (09:00)
[2019-02-09] MEDS: FLUOXETINE HCL 20 MG CAPSULE PO SCH (09:05)
[2019-02-09] MEDS: FAMOTIDINE 20 MG TABLET PO SCH (09:05)
[2019-02-09] MEDS: OMEPRAZOLE 20 MG CAPSULE.DR PO SCH (09:05)
[2019-02-09] MEDS: ASPIRIN 81 MG TABLET EC PO SCH (09:05)
[2019-02-09] MEDS ORDERED: HYDR25TA11 PO (13:47)
== END 2019-02-09 17:30 | disposition home health service (06) | DRG 682 ==
LOC: ED 07:05 → 3NE 07:28 → 4EST 21:01
PROVIDERS: ADMIT Internal Medicine; ATTEND Internal Medicine
DX: N17.9 Acute kidney failure, unspecified (principal); G92 Toxic encephalopathy; E78.5 Hyperlipidemia, unspecified; E86.0 Dehydration; E66.9 Obesity, unspecified; J44.9 Chronic obstructive pulmonary disease, unspecified; K21.9 Gastro-esophageal reflux disease without esophagitis; W18.30XA Fall on same level, unspecified, initial encounter; F41.9 Anxiety disorder, unspecified; G47.33 Obstructive sleep apnea (adult) (pediatric); I10 Essential (primary) hypertension; I25.10 Atherosclerotic heart disease of native coronary artery without angina pectoris; Z88.8 Allergy status to other drugs, medicaments and biological substances; Z68.31 Body mass index [BMI] 31.0-31.9, adult; Y93.89 Activity, other specified; Y92.89 Other specified places as the place of occurrence of the external cause; Z86.73 Personal history of transient ischemic attack (TIA), and cerebral infarction without residual deficits
CPT/HCPCS: 36415; 70450; 71045; 80048; 80053; 80061; 81001; 82140; 83036; 84439; 84443; 84484; 85025; 85610; 85730; 87086; 93005; 93306; 93880; 94640; G0378; J1170; J1650; J3486; J7613; J7626; J1200; J2270; J7030